=== PATIENT | female | born 1960 | race Caucasian/White ===

== ENCOUNTER → 2019-10-25 14:18 | Outpatient (CLI) | payer MEDICARE, SELFPAY ==
--- NOTE | ~2019-10-25 | XR_ITS ---
EXAMINATION: XR lumbar spine 2-3V DATE: 10/25/2019 14:52 INDICATION: Lumbar radiculopathy TECHNIQUE: Anteroposterior and lateral views of the lumbar spine, and cone-down lateral view of the l umbosacral junction were obtained. COMPARISON: 05/16/2017 FINDINGS: There are 4 mm of stable anterolisthesis of L3 on L4 and 2 mm of stable anterolisthesis of L5 on S1. The lumbar vertebral body heights are normal. There is mild loss of intervertebral disc spa ce height at L3-4 and L5-S1. Small degenerative osteophytes project from the anterior endplates of mu ltiple vertebral bodies. There is moderate to severe facet osteoarthritis of the lower lumbar spine. No fracture is identified. A large volume of colonic stool is present. IMPRESSION: 1. Mild lumbar spondylosis without acute findings or significant interval change. Reviewed, dictated and finalized at location A. 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 Mild lumbar spondylosis without acute findings or significant interval tiffanie bagley
== END ==
PROVIDERS: PCP Family Medicine; Visit Provider Pain Medicine Interventional Pain Medicine
DX: M47.26 Other spondylosis with radiculopathy, lumbar region (principal); G89.4 Chronic pain syndrome; Z13.89 Encounter for screening for other disorder; Z51.81 Encounter for therapeutic drug level monitoring; Z79.891 Long term (current) use of opiate analgesic
CPT/HCPCS: 72100

== ENCOUNTER → 2019-11-20 12:31 | Outpatient (CLI) | payer MEDICARE, SELFPAY ==
--- NOTE | ~2019-11-20 | MM_ITS ---
EXAMINATION: MM screening blaze BI w yann HISTORY: Screening mammogram TECHNIQUE: Craniocaudal and mediolateral oblique 3-D tomosynthesis images were obtained and synthetic 2-D images were generated. CAD analysis was submitted and interpreted. COMPARISON: 08/30/2004 BREAST PARENCHYMAL COMPOSITION: The breasts are almost entirely fatty. FINDINGS: There is no evidence of suspicious mass, calcification, or architectural distortion to sugg est malignancy in either breast. There has been no suspicious interval change. IMPRESSION: 1. No mammographic evidence of malignancy. 2. Recommend routine screening mammography in one year. BI-RADS Category 1: Negative Reviewed, dictated and finalized at location A.
== END ==
DX: Z12.31 Encounter for screening mammogram for malignant neoplasm of breast (principal)
CPT/HCPCS: 77063; 77067

== ENCOUNTER 2020-02-21 10:39 | Outpatient (CLI) | payer MEDICARE, SELFPAY ==
--- NOTE | ~2020-02-21 | XR_ITS ---
EXAMINATION: XR_CERV2-3V_CR DATE: 02/21/2020 11:14 INDICATION: Cervical radiculopathy. TECHNIQUE: 4 views of cervical spine were obtained. COMPARISON: Cervical spine MRI 03/30/2018 FINDINGS: There is kyphosis of cervical spine. There is 9 degrees dextrocurvature of cervicothoracic spine. Vertebral body heights are normal. There is moderately decreased disc height at C4-C5 and mild ly decreased disc height at C5-C6. At C4-C5, there is moderate bilateral uncovertebral joint osteoart hritis. The facet joints are unremarkable. There is mild central canal stenosis at C4-C5. No preverte bral soft tissue swelling. IMPRESSION: 1. Moderate cervical spondylosis. Reviewed, dictated and finalized at location A.
== END 2020-02-21 10:40 | disposition home or self-care (01) ==
LOC: ANHIMG 10:44
PROVIDERS: Visit Provider Pain Medicine Interventional Pain Medicine
DX: M47.812 Spondylosis without myelopathy or radiculopathy, cervical region (principal)
CPT/HCPCS: 72040

== ENCOUNTER → 2021-08-30 14:27 | Outpatient (CLI) | payer MEDICARE, SELFPAY ==
--- NOTE | ~2021-08-30 | XR_ITS ---
XR foot RT min 3V DATE: 08/30/2021 15:11 INDICATION: Right foot pain TECHNIQUE: Weightbearing AP, lateral and oblique views COMPARISON: 01/30/2018 right foot FINDINGS: There is prominent diffuse osteopenia. There is plantar calcaneal enthesopathy. There are osteoarthritic changes at the talocalcaneal and calcaneocuboid cuboid all and tarsometatars al joints in addition to the first metatarsophalangeal joint and interphalangeal joints. No fracture, dislocation, periosteal reaction or bone destruction is detected. IMPRESSION: Prominent diffuse osteopenia Plantar and posterior calcaneal enthesopathy Polyarticular osteoarthritis Reviewed, dictated and finalized at location B. INUM POLISHER
== END ==
PROVIDERS: Visit Provider Podiatrist Foot & Ankle Surgery
DX: M19.071 Primary osteoarthritis, right ankle and foot (principal); M77.31 Calcaneal spur, right foot
CPT/HCPCS: 73630

== ENCOUNTER → 2021-10-21 15:36 | Outpatient (CLI) | payer MEDICARE, SELFPAY ==
--- NOTE | ~2021-10-21 | XR_ITS ---
XR lumbar spine 2-3V DATE: 10/21/2021 16:32 INDICATION: Low back pain, radiculopathy TECHNIQUE: AP, lateral, coned lateral lumbosacral views COMPARISON: 10/25/2019 lumbar spine FINDINGS: Diffuse osteopenia. There is prominent degenerative change at the apophyseal joints in the mid and lower lumbar area with associated grade 1 anterolisthesis at L3-4 and L4-5. There is mild degenerative disc disease at L2-3, moderate degenerative disease at L3-4. No fracture or bone destruction. The lumbar pedicles are intact. The sacroiliac joints appear normal. Bilateral hip osteoarthritis. Abdominal aortic and bilateral common iliac artery calcification. IMPRESSION: Osteopenia Mild degenerative disc disease at L2-3 Moderate degenerative disc disease at L3-4. Degenerative change at the apophyseal joints with associated grade 1 anterolisthesis at L3-4 and L4-5 Reviewed, dictated and finalized at location A. 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 Degenerative change at the apophyseal joints with associated grade 1 anterolist hesis at L3-4 and L4-5
--- NOTE | ~2021-10-21 | XR_ITS ---
XR_CERV2-3V_CR DATE: 10/21/2021 16:32 INDICATION: Neck and lumbar back pain, radiculopathy TECHNIQUE: AP, open-mouth, lateral views COMPARISON: 02/21/2020 cervical spine FINDINGS: There is straightening of the cervical spine, likely due to muscle spasm. There is normal alignment of the cervical spine. C1 and C2 are normally aligned and the odontoid proc ess is intact. No fracture or dislocation or locked facet or prevertebral soft tissue swelling. There is moderately prominent loss of interspace height at C4-5 and C5-6 and C6-7. There is mild ante rior spurring primarily at C4-5. Mild uncovertebral joint spurring at C4-5 and C5-6. IMPRESSION: Straightening of the cervical spine suggesting muscle spasm Moderate degenerative disc disease in the mid to lower cervical spine Reviewed, dictated and finalized at Location A. Reviewed, dictated and finalized at location A. [employer]ICATING
== END ==
PROVIDERS: Visit Provider Family Medicine
DX: M47.26 Other spondylosis with radiculopathy, lumbar region (principal); M47.22 Other spondylosis with radiculopathy, cervical region
CPT/HCPCS: 72040; 72100

== ENCOUNTER → 2021-12-13 16:23 | Outpatient (CLI) | payer MEDICARE, SELFPAY ==
--- NOTE | ~2021-12-13 | MR_ITS ---
EXAMINATION: MR lumbar spine wo con EXAM DATE: 12/13/2021 17:30 INDICATION: Radiculopathy Lumbar Region. Chronic low back pain resulting in falls. TECHNIQUE: Multi-sequential, multiplanar MR images of the lumbar spine were obtained without contrast . Sagittal T1, T2, T2 fat saturation images. Axial T2 weighted images. Comparison is made to prior examination from 03/30/2018. FINDINGS: There is 3 to 4 mm anterolisthesis L3 on L4, with mild disc disease at this level. No spond ylolysis. There is 2 mm retrolisthesis L2 on L3 and 2 mm anterolisthesis L4 on L5. The vertebral body and disc heights are otherwise well maintained. The conus medullaris terminates at the T12-L1 level and has normal signal intensity and morphology. There are no suspicious marrow signal abnormalities. Paraspinal soft tissue is unremarkable. Level by level evaluation: T12-L1: Disc does not extend beyond the endplate margin. Facet arthropathy: None. Neural foraminal stenosis: No stenosis. Central canal stenosis: No stenosis. L1-L2: Disc does not extend beyond the endplate margin. Facet arthropathy: Mild. Neural foraminal stenosis: No stenosis. Central canal stenosis: No stenosis. L2-L3: There is a minimal diffuse disc bulge. Facet arthropathy: Mild to moderate. Neural foraminal stenosis: No stenosis. Central canal stenosis: No stenosis. L3-L4: There is a mild diffuse disc bulge. Facet arthropathy: Moderate to severe. Ligamentum flavum enlargement. Neural foraminal stenosis: Mild bilateral. Central canal stenosis: Mild. L4-L5: There is a mild diffuse disc bulge. Facet arthropathy: Severe. Neural foraminal stenosis: Mild bilateral. Central canal stenosis: Mild. L5-S1: Disc does not extend beyond the endplate margin. Facet arthropathy: Moderate to severe right, moderate left. Neural foraminal stenosis: No stenosis. Central canal stenosis: No stenosis. Slight interval progression in lumbar spondylosis. IMPRESSION: 1. L4-5 grade 1 anterolisthesis, severe facet arthropathy, only mild neural foraminal stenosis. 2. Less spondylosis other levels. Reviewed, dictated and finalized at location A. IMPRESSION: 1. L4-5 grade 1 anterolisthesis, severe facet arthropathy, only mild neural fo raminal stenosis. 2. Less spondylosis other levels.
--- NOTE | ~2021-12-13 | MR_ITS ---
EXAMINATION: MR cervical spine wo con EXAM DATE: 12/13/2021 17:20 INDICATION: Radiculopathy Cervical Region. TECHNIQUE: Multi-sequential, multiplanar MR images of the cervical spine were obtained without contra st. Axial T2, axial T2 MERGE sequence. Sagittal T1, T2, T2 fat saturation images also obtained. Com parison is made to prior examination from 03/30/2018. FINDINGS: There is moderate disc disease at C4-5, mild to moderate at C5-6 and mild at C6-7. There i s 2 mm anterolisthesis of T1 on T2 and T2 on T3, 2 mm retrolisthesis C4 on C5. The vertebral bodies a re otherwise aligned. There are no suspicious marrow signal abnormalities. The spinal cord signal int ensity and intrinsic morphology is normal. Cervicomedullary junction is normal in appearance. Paraspi nal soft tissue is unremarkable. Level by level evaluation: C2-C3: Disc does not extend beyond the endplate margin. Uncovertebral joint arthropathy: None. Facet joint arthropathy: Mild to moderate bilateral. Neural foraminal stenosis: No stenosis. Central canal stenosis: No stenosis. C3-C4: Disc does not extend beyond the endplate margin. Uncovertebral joint arthropathy: None. Facet joint arthropathy: Mild bilateral. Neural foraminal stenosis: No stenosis. Central canal stenosis: No stenosis. C4-C5: There is a mild diffuse disc bulge. Uncovertebral joint arthropathy: Mild to moderate bilateral. Facet joint arthropathy: Mild to moderate bilateral. Neural foraminal stenosis: Moderate right, mild to moderate left. Central canal stenosis: Mild. C5-C6: There is a mild diffuse disc bulge asymmetric to the right Uncovertebral joint arthropathy: Mild to moderate right, mild left. Facet joint arthropathy: Mild bilateral. Neural foraminal stenosis: Moderate right. Central canal stenosis: Mild. C6-C7: There is a mild diffuse disc bulge. Uncovertebral joint arthropathy: Mild left. Facet joint arthropathy: None. Neural foraminal stenosis: Mild left. Central canal stenosis: Mild. C7-T1: Disc does not extend beyond the endplate margin. Uncovertebral joint arthropathy: Mild left. Facet joint arthropathy: None. Neural foraminal stenosis: No stenosis. Central canal stenosis: No stenosis. IMPRESSION: Mild to moderate cervical spondylosis, mild progression compared to 2018. Reviewed, dictated and finalized at location A.
== END ==
PROVIDERS: Visit Provider Pain Medicine Interventional Pain Medicine
DX: M47.22 Other spondylosis with radiculopathy, cervical region (principal); M47.27 Other spondylosis with radiculopathy, lumbosacral region
CPT/HCPCS: 72141; 72148

== ENCOUNTER 2023-01-25 13:17 | Outpatient (CLI) | payer MEDICARE, SELFPAY ==
--- NOTE | ~2023-01-25 | XR_ITS ---
XR cervical spine 4-5V 01/25/2023 14:00 Indication: Radiculopathy Procedure: 4 view cervical spine Comparison: Comparison to multiple prior studies sequentially, with oldest reviewed study dated 02/20. Findings: Straightening of cervical lordosis. There is disc narrowing at C4-5, C5-6 and C6-C7. No pre vertebral soft tissue swelling. Odontoid process is normal. There is mild multilevel uncinate and fac et hypertrophy. Lung apices are normal. No acute fracture or traumatic malalignment. Impression: 1: Moderate cervical spondylosis. Reviewed, dictated and finalized at location B. Impression: 1: Moderate cervical spondylosis.
--- NOTE | ~2023-01-25 | XR_ITS ---
XR lumbar spine 2-3V 01/25/2023 14:00 Indication: Radiculopathy Procedure: 3 views lumbar spine Comparison: 10/21/2021 Findings: There is disc narrowing at all lumbar levels. There are facet degenerative changes of the m id and lower lumbar spine. There is grade 1 spondylolisthesis at L3-4 and L4-5. No acute fracture or traumatic malalignment. Impression: 1: Moderate lumbar spondylosis with grade 1 degenerative spondylolisthesis at L3-4 and L4-5. Reviewed, dictated and finalized at location B. Impression: 1: Moderate lumbar spondylosis with grade 1 degenerative spondylolisthesis at L 3-4 and L4-5.
== END 2023-01-25 13:18 ==
PROVIDERS: PCP Pain Medicine Interventional Pain Medicine; Visit Provider Pain Medicine Interventional Pain Medicine
DX: M47.22 Other spondylosis with radiculopathy, cervical region (principal); M47.23 Other spondylosis with radiculopathy, cervicothoracic region; M51.36 Other intervertebral disc degeneration, lumbar region; M51.37 Other intervertebral disc degeneration, lumbosacral region; M47.896 Other spondylosis, lumbar region
CPT/HCPCS: 72050; 72100

== ENCOUNTER 2024-01-11 15:23 | Outpatient (CLI) | payer MEDICARE, SELFPAY ==
--- NOTE | ~2024-01-11 | XR_ITS ---
EXAMINATION: XR shoulder RT min 2V DATE: 01/11/2024 15:46 INDICATION: Right shoulder pain. TECHNIQUE: 4 views of right shoulder were obtained. COMPARISON: None. FINDINGS: Bone alignment is normal. No fracture. There is mild osteoarthritis of glenohumeral joint a nd severe osteoarthritis of acromioclavicular joint. IMPRESSION: 1. Polyarticular osteoarthritis. Reviewed, dictated and finalized at location E.
--- NOTE | ~2024-01-11 | XR_ITS ---
EXAMINATION: XR shoulder LT min 2V DATE: 01/11/2024 15:46 INDICATION: Left shoulder pain. TECHNIQUE: 4 views of left shoulder were obtained. COMPARISON: None. FINDINGS: Bone alignment is normal. No fracture. There is mild osteoarthritis of the glenohumeral vianey nt and moderate osteoarthritis of acromioclavicular joint. IMPRESSION: 1. Polyarticular osteoarthritis. Reviewed, dictated and finalized at location E.
== END 2024-01-11 15:24 ==
LOC: MICIMG 15:26
PROVIDERS: PCP Pain Medicine Interventional Pain Medicine; Visit Provider Pain Medicine Interventional Pain Medicine
DX: M25.519 Pain in unspecified shoulder (principal); M19.012 Primary osteoarthritis, left shoulder; M19.011 Primary osteoarthritis, right shoulder
CPT/HCPCS: 73030

== ENCOUNTER 2024-02-12 12:59 | Outpatient (CLI) | payer MEDICARE, SELFPAY ==
--- NOTE | ~2024-02-12 | XR_ITS ---
Lumbosacral Spine: AP and lateral views Clinical History: Pain Findings: The normal lordotic curve is maintained. No fracture seen. Grade 1 anterolisthesis of L3 ov er L4 present. Grade 1 anterolisthesis of L4 over L5 present. There is moderate facet arthropathy thr oughout the lumbar spine. The sacroiliac joints are normally outlined. Impression: Grade 1 anterolisthesis of L3 over L4, and L4-L5. Moderate facet arthropathy. Reviewed, dictated and finalized at location M. Impression: Grade 1 anterolisthesis of L3 over L4, and L4-L5. Moderate facet arthropathy.
--- NOTE | ~2024-02-12 | XR_ITS ---
Cervical Spine: AP, lateral, open-mouth views Clinical History: Pain Findings: There is straightening of the normal cervical lordosis. Minimal grade 1 retrolisthesis of C 4 over C5 present. No fracture. There is moderate degenerative disc narrowing from C4 through C7. The re is mild facet arthropathy. Pre-vertebral soft tissues are unremarkable. Impression: [id number] degenerative spondylosis, as above. Reviewed, dictated and finalized at location M. Impression: [id number] degenerative spondylosis, as above.
== END 2024-02-12 13:00 ==
PROVIDERS: PCP Pain Medicine Interventional Pain Medicine; Visit Provider Pain Medicine Interventional Pain Medicine
DX: M43.16 Spondylolisthesis, lumbar region (principal); M47.896 Other spondylosis, lumbar region; M47.892 Other spondylosis, cervical region
CPT/HCPCS: 72050; 72100

== ENCOUNTER 2025-05-15 16:05 | Outpatient (CLI) | payer MEDICARE, SELFPAY ==
--- NOTE | ~2025-05-15 | XR_ITS ---
XR shoulder LT min 2V 05/15/2025 16:51 Indication: Left shoulder pain Procedure: 4 views left shoulder Comparison: 01/11/2024 Findings: Mild polyarticular osteoarthritis of the shoulder. Osteopenia. No acute fracture or traumatic malalignment. Impression: 1: Mild polyarticular osteoarthritis. Reviewed, dictated and finalized at location O. Impression: 1: Mild polyarticular osteoarthritis.
--- NOTE | ~2025-05-15 | XR_ITS ---
XR shoulder RT min 2V 05/15/2025 16:51 INDICATION: Right shoulder pain PROCEDURE: 4 views right shoulder COMPARISON: 01/11/2024 FINDINGS: Fracture, dislocation or subluxation is not identified. Mild degenerative changes of the acromioclavicular joint. The soft tissues appear within normal limits. No foreign bodies are identified. IMPRESSION: 1: NO ACUTE BONE OR JOINT ABNORMALITY IDENTIFIED. Reviewed, dictated and finalized at location O.
--- NOTE | ~2025-05-15 | XR_ITS ---
XR_CERV2-3V_CR 05/15/2025 16:51 Indication: Radiculopathy Procedure: 3 view cervical spine Comparison: Comparison to multiple prior studies sequentially, with oldest reviewed study dated 02/21/2020. Findings: Reversal of cervical lordosis. There is disc narrowing at C4-5, C5-6 and C6-7. There is normal alignment. No prevertebral soft tissue swelling. There is mild multilevel uncinate hypertrophy. Lung apices are normal. Odontoid process is normal. No acute fracture or traumatic malalignment. Impression: 1: Mild cervical spondylosis. Reviewed, dictated and finalized at location O. Impression: 1: Mild cervical spondylosis.
--- NOTE | ~2025-05-15 | XR_ITS ---
XR lumbar spine 2-3V 05/15/2025 16:51 Indication: Radiculopathy Procedure: 3 views lumbar spine Comparison: 02/12/2024 Findings: There is moderate multilevel facet hypertrophy. There is grade 1 degenerative spondylolisthesis at L3-4 and L4-5. Vertebral body heights are maintained. No acute fracture or traumatic malalignment. Sacral foramen are symmetric. Impression: 1: Moderate lumbar spondylosis. Reviewed, dictated and finalized at location O. Impression: 1: Moderate lumbar spondylosis.
== END 2025-05-15 16:06 | disposition home or self-care (01) ==
LOC: MICIMG 16:08
PROVIDERS: PCP Pain Medicine Interventional Pain Medicine; Visit Provider Pain Medicine Interventional Pain Medicine
DX: M47.22 Other spondylosis with radiculopathy, cervical region (principal); M47.23 Other spondylosis with radiculopathy, cervicothoracic region; M25.511 Pain in right shoulder; M19.012 Primary osteoarthritis, left shoulder
CPT/HCPCS: 72040; 72100; 73030